=== PATIENT | female | born 1955 | race Caucasian/White ===

== ENCOUNTER → 2016-04-14 | Outpatient (CLI) | payer BC | LOC: CIMAGING 08:07 | DX: Z12.31 Encounter for screening mammogram for malignant neoplasm of breast (principal) | CPT/HCPCS: G0202 ==

== ENCOUNTER → 2017-03-25 | Outpatient (CLI) | payer BC | LOC: CIMAGING 12:19 | PROVIDERS: ATTEND Family Medicine | DX: Z12.31 Encounter for screening mammogram for malignant neoplasm of breast (principal) ==

== ENCOUNTER → 2017-06-09 | Outpatient (CLI) | payer BC | LOC: CIMAGING 12:13 | PROVIDERS: ATTEND Family Medicine | DX: M79.641 Pain in right hand (principal); M79.89 Other specified soft tissue disorders | CPT/HCPCS: 73130-PO ==